=== PATIENT | female | born 1945 | race Caucasian/White ===

== ENCOUNTER → 2023-03-05 | Outpatient (CLI) | payer MEDICARE | END | disposition home or self-care (01) | LOC: PREOP 05:42 | PROVIDERS: ATTEND Otolaryngology Otolaryngology/Facial Plastic Surgery | DX: Z01.818 Encounter for other preprocedural examination (principal) ==

== ENCOUNTER 2023-03-12 08:21 | Day surgery (SDC) | payer MEDICARE ==
[~2023-03-12] VITALS: Ht 167.7 cm; Wt 102.4 kg
[2023-03-12] VITALS (11 sets, daily range): BP systolic 138–166; BP diastolic 70–97
[~2023-03-12 08:21] MED LIST: ACET-93 PO; AMLO2.5T4 PO; ASCO100024 PO; ASPI-999 PO; ATOR20TA66 PO; CARV12.53 PO; CHOL400D PO; FOLI20CA PO; GABA300S3 PO; LATA1OIL MC; LEVO150C4 PO; LINA145C PO; MULT-974 PO; OMEP40CA6 PO; [UNRECOGNIZED DRUG - CODE] PO
[2023-03-12] MEDS: LACTATED RINGERS 1,000 ML 1,000 ML IV PRN ×2 (09:27→11:53)
[2023-03-12] MEDS ORDERED: LIDOCAINE PF 2% 5 ML VIAL ONE (09:45)
[2023-03-12] MEDS ORDERED: HYDROCORTISONE INJECTION 100 MG/2 ML VIAL IV ONE (09:45)
[2023-03-12] MEDS ORDERED: proPOfol INJECTION 200 MG/20 ML VIAL IV ONE (09:45)
[2023-03-12] MEDS ORDERED: ROCURONIUM 50 MG/5 ML VIAL IV ONE (09:45)
[2023-03-12] MEDS ORDERED: AMPICILLIN/SULBACTAM INJECTION 1.5 GM in NS (IVPB) 100 ML 100 ML IV ONE (09:45)
[2023-03-12] MEDS ORDERED: LIDOCAINE 2% w/EPI 1:100,000 20 ML VIAL ONE (09:47)
[2023-03-12] MEDS ORDERED: PHENYLEPHRINE 0.5% (REGULAR) NASAL SPRAY 15 ML ONE (09:47)
[2023-03-12] MEDS ORDERED: fentaNYL INJECTION 100 MCG/2 ML VIAL ONE (09:47)
[2023-03-12] MEDS ORDERED: COCAINE 4% TOPICAL SOLN 2 ML SYR ONE (09:47)
[2023-03-12] MEDS ORDERED: BSS 15 ML ONE (09:47)
[2023-03-12 10:03] LABS: BASOPHILS # (AUTO) 0.1 10^3/uL (0.0-0.1); BASOPHILS % (AUTO) 1 % (0-10); EOSINOPHILS # (AUTO) 0.2 10^3/uL (0.0-0.3); EOSINOPHILS % (AUTO) 2 % (0-10); HEMATOCRIT 42 % (35-52); HEMOGLOBIN 13.4 g/dL (11.5-16.0); LYMPHOCYTES # (AUTO) 3.9 10^3/uL (1.0-4.0); LYMPHOCYTES % (AUTO) 42 % (12-44); MEAN CORPUSCULAR HEMOGLOBIN 29 pg (25-34); MEAN CORPUSCULAR HGB CONC 32 g/dL (32-36); MEAN CORPUSCULAR VOLUME 89 fL (80-99); MEAN PLATELET VOLUME 12.1 fL (9.0-12.2); MONOCYTES # (AUTO) 0.9 10^3/uL (0.0-1.0); MONOCYTES % (AUTO) 10 % (0-12); NEUTROPHILS # (AUTO) 4.1 10^3/uL (1.8-7.8); NEUTROPHILS % (AUTO) 45 % (42-75); PLATELET COUNT 287 10^3/uL (130-400); WHITE BLOOD COUNT 9.3 10^3/uL (4.3-11.0)
--- NOTE | 2023-03-12 10:12 | Progress Note-Pre Operative ---
Pre-Operative Progress Note Date of Available H&P: Mar 12, 2023 Date H&P Reviewed: Mar 12, 2023 Time H&P Reviewed: 09:30 History & Physical: H&P Reviewed, Patient Examed, No changes noted Changes from last HP none Pre-Operative Diagnosis: Bilat Chrionic Sinusitis, Deviated SEptum, Hyper of Inf Turbs RATNA CHÁVEZ MD Mar 12, 2023 10:12
--- NOTE | 2023-03-12 10:13 | Progress Note-Post Operative ---
Post-Operative Progess Note Surgeon (s)/Hedge Fund Principal (s) Surgeon RATNA CHÁVEZ MD Hedge Fund Principal n/a Pre-Operative Diagnosis Bilat Chrionic Sinusitis, Deviated SEptum, Hyper of Inf Turbs Post-Operative Diagnosis same Post-Op Procedure Note Date of Procedure: Mar 12, 2023 Name of Procedure Performed: Bilat ESS, Septoplasty, Bilat Red of Inf Turbs Description & Findings Description and Findings: n/a Anesthesia Type get Estimated Blood Loss minimal Packing none. Specimen(s) collected/removed bialt chornic sinusitis, nasal septum RATNA CHÁVEZ MD Mar 12, 2023 10:13
[2023-03-12 10:15] LABS: CALCIUM 9.8 MG/DL (8.5-10.1); CREATININE SERUM 0.87 MG/DL (0.60-1.30); POTASSIUM 6.4 MMOL/L (3.6-5.0)
[2023-03-12] MEDS ORDERED: predniSONE 20 MG TABLET PO ONE (10:15)
[2023-03-12] MEDS ORDERED: PROMETHAZINE INJ 25 MG/ML VIAL IVP PRN (10:15)
[2023-03-12] MEDS ORDERED: HYDROcodone/ACETAMINOPHEN 5 MG/325 MG TABLET PO PRN (10:15)
[2023-03-12] MEDS ORDERED: D5 1/2NS + KCL 20 MEQ/L 1000ML 1,000 ML IV SCH (10:15)
[2023-03-12] MEDS ORDERED: ONDANSETRON INJECTION 4 MG/2 ML (SDV) ONE (10:20)
[2023-03-12] MEDS ORDERED: GLYCOPYRROLATE INJ 0.2 MG/ML 2 ML VIAL ONE ×2 (10:42→11:14)
[2023-03-12] MEDS ORDERED: NEOSTIGMINE 1 MG/1ML 10 ML VIAL ONE (11:14)
[2023-03-12] MEDS ORDERED: SEVOFLURANE (ULTANE) 15 ML INHAL SOLN ONE (11:23)
--- NOTE | 2023-03-12 12:42 | Anesthesia-General Post-Op ---
General Patient Condition Mental Status/LOC: Same as Preop Cardiovascular: Satisfactory Nausea/Vomiting: Absent Respiratory: Satisfactory Pain: Controlled Complications: Absent Post Op Complications Complications None Follow Up Care/Instructions Patient Instructions None needed. Anesthesia/Patient Condition Patient Condition Patient is doing well, no complaints, stable vital signs, no apparent adverse anesthesia problems. No complications reported per nursing. SEGUN BLAIR CRNA Mar 12, 2023 12:42
[2023-03-12] MEDS ORDERED: ACHD5005 PO (13:42)
[2023-03-12] MEDS ORDERED: augmentin PO (13:42)
[2023-03-12] MEDS ORDERED: PRD20T PO (13:42)
[2023-03-12] MEDS ORDERED: [UNRECOGNIZED DRUG - OTHER] (13:42)
== END 2023-03-12 14:45 | disposition home or self-care (01) ==
LOC: SDC 08:21
PROVIDERS: ATTEND Otolaryngology Otolaryngology/Facial Plastic Surgery
DX: J32.0 Chronic maxillary sinusitis (principal); J34.2 Deviated nasal septum; J34.89 Other specified disorders of nose and nasal sinuses; R09.81 Nasal congestion; J34.3 Hypertrophy of nasal turbinates
CPT/HCPCS: 36415; 80048; 85025; 87070; 87075; 87076; 87077; 87081; 87101; 87205; 93005